=== PATIENT | female | born 1970 ===

== ENCOUNTER 2017-03-27 09:28 | Outpatient (CLI) | payer MEDICARE ==
[2017-03-27 10:00] LABS: Hematocrit 43.7 % (30.3-42.9); Hemoglobin 14.3 gm/dl (10.1-14.3); Mean Corpuscular HGB Conc 33 % (30-34); Mean Corpuscular Hemoglobin 30 pg (28-32); Mean Corpuscular Volume 91 fl (79-97); Platelet Count 239 K/mm3 (140-440); Red Cell Distribution Width 13.5 % (13.2-15.2); White Blood Count 7.2 K/mm3 (4.5-11.0)
[2017-03-27 10:20] LABS: Erythrocyte Sedimentation Rate 18 mm/Hr (0-20)
[2017-03-27 10:40] LABS: Alanine Aminotransferase 9 units/L (7-56); Albumin 4.1 g/dL (3.9-5); Albumin/Globulin Ratio 1.1 %; Alkaline Phosphatase 74 units/L (35-129); Anion Gap 20 mmol/L; BUN/Creatinine Ratio 18.33; Blood Urea Nitrogen 11 mg/dL (7-17); Calcium 9.7 mg/dL (8.4-10.2); Carbon Dioxide 23 mmol/L (22-30); Creatine Kinase 86 units/L (30-135); Glucose 94 mg/dL (65-100); Sodium 139 mmol/L (137-145)
[2017-03-28 15:28] LABS: Vitamin D, 25-OH, Total 17 ng/mL (30-100)
== END 2017-03-27 09:29 | disposition home or self-care (01) ==
LOC: LAB 09:28
PROVIDERS: ATTEND Specialist
DX: G65.1 Sequelae of other inflammatory polyneuropathy (principal); E55.9 Vitamin D deficiency, unspecified; R79.89 Other specified abnormal findings of blood chemistry
CPT/HCPCS: 36415; 80053; 82085; 82164; 82306; 82550; 82607; 82747; 83036; 83921; 84443; 85027; 85652; 86038; 86225; 86334; 86592; 86618